=== PATIENT | female | born 1975 | race African-American/Black ===

== ENCOUNTER 2017-10-31 11:55 | Emergency (ER) | payer OTHER ==
[2017-10-31 12:23] VITALS: BP 113/51; PULSE 66; TEMP 98.5; BMI 33.3
[2017-10-31] MEDS ORDERED: IBUPROFEN 600 MG TABLET (FP) PO ONE ×2 (12:28→12:35)
--- NOTE | 2017-10-31 13:02 | PDOC ---
History of Present Illness - General Chief Complaint: Sore Throat Stated Complaint: THROAT PAIN Time Seen by Provider: 10/31/17 12:28 History Source: Patient Exam Limitations: No Limitations - History of Present Illness Initial Comments: 10/31/17 12:59 42-year-old female presents the emergency room with complaints of left-sided throat pain, ear pain, and a bump to her upper neck for the past 3 days. Patient states no difficulty swallowing and denies fever/chills smoking history recent illness or recent travel. Patient denies neck stiffness, dental infection , or tongue pain Timing/Duration: other Severity: mild Associated Symptoms: reports: denies symptoms Past History - Past Medical History Allergies/Adverse Reactions: Allergies Allergy/AdvReac Type Severity Reaction Status Date / Time No Known Allergies Allergy Verified 10/31/17 12:23 Home Medications: Ambulatory Orders NK [No Known Home Medication] 10/31/17 Anemia: Yes Asthma: No Cancer: No Cardiac Disorders: No CVA: No COPD: No CHF: No Dementia: No Diabetes: No GI Disorders: No Disorders: No HTN: No Hypercholesterolemia: No Liver Disease: No Seizures: No Thyroid Disease: No - Surgical History Abdominal Surgery: No Appendectomy: No Cardiac Surgery: No Cholecystectomy: No Lung Surgery: No Neurologic Surgery: No Orthopedic Surgery: No - Suicide/Smoking/Psychosocial Hx Smoking Status: No Smoking History: Never smoked Have you smoked in the past 12 months: No Number of Cigarettes Smoked Daily: 0 Information on smoking cessation initiated: No Hx Alcohol Use: No Drug/Substance Use Hx: No Substance Use Type: None Hx Substance Use Treatment: No Patient Lives Alone: No Lives with/in: spouse/SO Review of Systems - Review of Systems Able to Perform ROS?: No Constitutional: No: Symptoms Reported HEENTM: Yes: Ear Pain, Throat Pain. No: Difficulty Swallowing, Mouth Swelling Respiratory: No: Symptoms reported Cardiac (ROS): No: Symptoms Reported Musculoskeletal: No: Symptoms Reported Integumentary: Yes: Lumps Neurological: No: Symptoms reported *Physical Exam - Vital Signs Last Vital Signs Temp Pulse Resp BP Pulse Ox 98.5 F 66 18 113/51 100 10/31/17 12:00 10/31/17 12:00 10/31/17 12:00 10/31/17 12:00 10/31/17 12:00 - Physical Exam General Appearance: Yes: Nourished, Appropriately Dressed. No: Apparent Distress HEENT: positive: EOMI, LEDA, TMs Normal, Pharyngeal Erythema (left-sided no petechiae no exudate. Impacted tooth #1, no signs of decay) Neck: positive: Normal Thyroid, Supple, Lymphadenopathy (L) (mild upper cervical ). negative: Tender lateral Respiratory/Chest: positive: Lungs Clear, Normal Breath Sounds. negative: Respiratory Distress, Accessory Muscle Use Cardiovascular: positive: Regular Rhythm, Regular Rate. negative: Murmur Integumentary: positive: Normal Color, Warm, Moist Neurologic: positive: Motor Strength 5/5 (ambulatory) ED Treatment Course - Medications Given in the ED: ED Medications Discontinued Medications Generic Name Dose Route Start Last Admin Trade Name Freq PRN Reason Stop Dose Admin Ibuprofen 600 mg 10/31/17 12:28 10/31/17 12:37 Motrin - PO 10/31/17 12:29 600 mg ONCE ONE Administration Medical Decision Making - Medical Decision Making 10/31/17 13:01 Patient with left-sided throat pain and ear pain. Patient exam with mild erythema to the left posterior pharynx and 1 slightly enlarged upper cervical lymph node. Patient ordered for Motrin along with rapid strep. If negative patient recommended to follow up with dentist for impacted tooth which she states was told needed to be removed but lacks insurance presently 10/31/17 13:34 Strep negative. Patient recommended to continue with Motrin every 6-8 hours and follow-up with dentist. *DC/Admit/Observation/Transfer Diagnosis at time of Disposition: Throat discomfort, Impacted tooth - Discharge Dispostion Disposition: HOME Condition at time of disposition: Improved - Referrals Referrals: Primo Aguilar MD [Primary Care Provider] - - Patient Instructions Printed Discharge Instructions: DI for Impacted Tooth Additional Instructions: continue with Motrin 600 mg every 6-8 hours and follow-up with dentist. - Post Discharge Activity
== END 2017-10-31 13:36 | disposition home or self-care (01) ==
LOC: JERFT 11:55 → JER 11:55 → JERFT 13:36
DX: K01.1 Impacted teeth (principal); R59.0 Localized enlarged lymph nodes; R07.0 Pain in throat
CPT/HCPCS: 87070; 87430; 99281-25

== ENCOUNTER 2021-01-14 23:18 | Emergency (ER) | payer OTHER ==
[2021-01-14 23:46] VITALS: BP 122/86; PULSE 78; TEMP 98.3; BMI 33.3
[2021-01-15 09:33] LABS: HIV INTERPRETATION NEGATIVE (NEGATIVE)
== END 2021-01-15 02:20 | disposition home or self-care (01) ==
LOC: JER 23:18
DX: S61.032A Puncture wound without foreign body of left thumb without damage to nail, initial encounter (principal); W46.1XXA Contact with contaminated hypodermic needle, initial encounter
CPT/HCPCS: 36415; 86706; 87389; 87517; 87522; 99283-25

== ENCOUNTER 2021-07-12 08:33 | Emergency (ER) | payer OTHER ==
[2021-07-12 08:40] VITALS: BP 116/71; PULSE 66; TEMP 98.5; BMI 31.9
[2021-07-12] MEDS ORDERED: LIDOCAINE HCL 1%, 10 MG/ML (50 mL VIAL) SQ ONE (09:34)
[2021-07-12] MEDS ORDERED: LIDOCAINE HCL 1%, 10 MG/ML (20ML VIAL) ONE (09:42)
== END 2021-07-12 10:03 | disposition home or self-care (01) ==
LOC: JER 08:33 → JERFT 08:33
DX: N61.1 Abscess of the breast and nipple (principal)
CPT/HCPCS: 99283-25

== ENCOUNTER 2022-04-07 15:27 | Observation (INO) | payer OTHER ==
[2022-04-07 18:03] LABS: BASO % 0.8 % (0-2.0); EOS % 2.9 % (0-4.5); HEMATOCRIT 25.6 % (32.4-45.2); HEMOGLOBIN 7.5 GM/dL (10.7-15.3); LYMPH % 27.6 % (8-40); MCHC 29.1 g/dl (32.0-36.0); MEAN CELL VOLUME 55.5 fl (80-96); MEAN PLT VOLUME 8.5 fl (7.5-11.1); MONO % 6.7 % (3.8-10.2); PLATELET COUNT 342 10^3/uL (134-434); RBC 4.62 M/mm3 (3.60-5.2); RDW 21.3 % (11.6-15.6)
[2022-04-07 18:10] LABS: INR 1.09 (0.83-1.09); PROTHROMBIN TIME (PATIENT) 12.5 SEC (9.7-13.0)
[2022-04-07 18:12] LABS: ACTIVATED PTT 26.1 SECONDS (25.2-36.5)
[2022-04-07 18:14] LABS: MCH 16.2 pg (25.7-33.7)
[2022-04-07 18:20] LABS: CALCIUM 8.6 mg/dL (8.5-10.1)
[2022-04-07 18:21] LABS: ALBUMIN 3.4 g/dl (3.4-5.0); BLOOD UREA NITROGEN 7.1 mg/dL (7-18)
[2022-04-07 18:24] LABS: CREATININE 0.8 mg/dL (0.55-1.3)
[2022-04-07 18:26] LABS: BILIRUBIN,TOTAL 0.2 mg/dL (0.2-1); TOT PROT 7.5 g/dl (6.4-8.2)
[2022-04-07 19:46] LABS: ANISOCYTOSIS 3+; MACROCYTOSIS 1+; PLATELET ESTIMATE NORMAL
[2022-04-07 19:47] LABS: OVALOCYTE 1+
[2022-04-07 21:29] LABS: ERYTHROCYTE SEDIMENTATION RATE 28 mm/hr (0-20)
[2022-04-08 01:00] LABS: HEMATOCRIT 28.7 % (32.4-45.2); HEMOGLOBIN 8.6 GM/dL (10.7-15.3); MCHC 29.8 g/dl (32.0-36.0); MEAN CELL VOLUME 58.5 fl (80-96); MEAN PLT VOLUME 8.8 fl (7.5-11.1); PLATELET COUNT 309 10^3/uL (134-434); RBC 4.91 M/mm3 (3.60-5.2); WHITE BLOOD COUNT 7.6 K/mm3 (4.0-10.0)
[2022-04-08 01:03] LABS: MCH 17.4 pg (25.7-33.7)
[2022-04-08 01:18] VITALS: RESP 18; BMI 32.0
[2022-04-08 10:58] LABS: BASO % 0.7 % (0-2.0); EOS % 2.8 % (0-4.5); HEMOGLOBIN 8.5 GM/dL (10.7-15.3); MCHC 30.3 g/dl (32.0-36.0); MEAN CELL VOLUME 58.3 fl (80-96); MEAN PLT VOLUME 8.8 fl (7.5-11.1); MONO % 6.6 % (3.8-10.2); NEUT % 64.9 % (42.8-82.8); PLATELET COUNT 309 10^3/uL (134-434); RBC 4.81 M/mm3 (3.60-5.2); RDW 22.7 % (11.6-15.6); WHITE BLOOD COUNT 6.6 K/mm3 (4.0-10.0)
[2022-04-08 10:59] LABS: MCH 17.7 pg (25.7-33.7)
[2022-04-08] MEDS ORDERED: diphenhydrAMINE HCL 25 MG CAPSULE (FP) PO SCH (12:00)
[2022-04-08 12:25] LABS: ALBUMIN 3.2 g/dl (3.4-5.0); BLOOD UREA NITROGEN 9.2 mg/dL (7-18); PHOSPHOROUS 3.2 mg/dL (2.5-4.9)
[2022-04-08 12:27] LABS: BILIRUBIN,TOTAL 0.4 mg/dL (0.2-1); CALCIUM 8.4 mg/dL (8.5-10.1)
[2022-04-08 12:28] LABS: CREATININE 0.7 mg/dL (0.55-1.3)
[2022-04-08] MEDS ORDERED: IRON SUCROSE INJECTION 100 MG in SODIUM CHLORIDE 95 ML IVPB ONE (12:30)
[2022-04-08 13:56] VITALS: BP 108/53; PULSE 67; TEMP 97.9
== END 2022-04-08 17:08 | disposition home or self-care (01) ==
LOC: JER 15:27 → JERBED 19:05 → INTOOBSV 19:05 → J6S 23:22
PROVIDERS: ADMIT Internal Medicine; ATTEND Internal Medicine
PROC: 3E033GC Introduction of Other Therapeutic Substance into Peripheral Vein, Percutaneous Approach (ICD-10-PCS; principal; 2022-04-07)
PROC: 30233N1 Transfusion of Nonautologous Red Blood Cells into Peripheral Vein, Percutaneous Approach (ICD-10-PCS; 2022-04-07)
DX: D50.9 Iron deficiency anemia, unspecified (principal); N60.09 Solitary cyst of unspecified breast; K64.8 Other hemorrhoids; Z29.8 Encounter for other specified prophylactic measures; R53.83 Other fatigue
CPT/HCPCS: 36415; 36430; 71045-TC-FY; 80053; 82272; 82607; 82728; 82746; 83540; 83550; 83735; 84100; 84443; 84484; 85025; 85027; 85610; 85651; 85730; 86140; 86850; 86900; 86901; 86922; 93005; 93010; 96365; 99285-25; C9803-CS; G0378; J1756; P9058; U0003; U0005

== ENCOUNTER 2022-12-28 04:38 | Day surgery (SDC) | payer OTHER ==
[2022-12-26 11:31] VITALS: BMI 31.8
[2022-12-28 11:28] VITALS: RESP 23
[2022-12-28 11:30] VITALS: BP 109/56; PULSE 54; TEMP 98
== END 2022-12-28 11:33 | disposition home or self-care (01) ==
LOC: JASU-ENDO 04:38
PROVIDERS: ATTEND Internal Medicine Gastroenterology
PROC: 0DB98ZX Excision of Duodenum, Via Natural or Artificial Opening Endoscopic, Diagnostic (ICD-10-PCS; 2022-12-28)
PROC: 0DB68ZX Excision of Stomach, Via Natural or Artificial Opening Endoscopic, Diagnostic (ICD-10-PCS; 2022-12-28)
PROC: 0DJD8ZZ Inspection of Lower Intestinal Tract, Via Natural or Artificial Opening Endoscopic (ICD-10-PCS; principal; 2022-12-28 10:00)
DX: Z12.11 Encounter for screening for malignant neoplasm of colon (principal); K21.00 Gastro-esophageal reflux disease with esophagitis, without bleeding; K29.50 Unspecified chronic gastritis without bleeding; B96.81 Helicobacter pylori [H. pylori] as the cause of diseases classified elsewhere; K64.8 Other hemorrhoids; K92.1 Melena; D50.9 Iron deficiency anemia, unspecified
CPT/HCPCS: 81025; 88305-TC; 88342-TC

== ENCOUNTER 2023-06-03 04:35 | Day surgery (SDC) | payer OTHER ==
[2023-05-30 15:16] VITALS: BMI 31.6
[2023-06-03 09:20] VITALS: RESP 18
[2023-06-03] MEDS ORDERED: LIDOCAINE HCL/PF 1% SDV 5ML VIAL ONE (10:04)
[2023-06-03] MEDS ORDERED: DEXAMETHASONE SOD PHOSPHATE 10 MG/1 ML VIAL ONE (10:04)
[2023-06-03] MEDS ORDERED: MIDAZOLAM HCL 2 MG/2 ML SINGLE DOSE VIAL ONE (10:48)
[2023-06-03] MEDS ORDERED: IOHEXOL 180 MG/1 ML ML IJ ONE (10:57)
[2023-06-03] MEDS ORDERED: LIDOCAINE 1% P/F 10 MG/ML VIAL INF ONE (10:57)
[2023-06-03] MEDS ORDERED: BUPIVACAINE HCL/PF 0.25% (2.5MG/ML) 10 ML VIAL IJ ONE (10:57)
[2023-06-03] MEDS ORDERED: DEXAMETHASONE SOD PHOSPHATE 10 MG/1 ML VIAL IVPUSH ONE (10:57)
[2023-06-03 11:20] VITALS: TEMP 97.7
[2023-06-03 13:29] VITALS: BP 119/60; PULSE 61
== END 2023-06-03 13:26 | disposition home or self-care (01) ==
LOC: JASU-SURG 04:35
PROVIDERS: ATTEND Physical Medicine & Rehabilitation
PROC: 3E0R3BZ Introduction of Anesthetic Agent into Spinal Canal, Percutaneous Approach (ICD-10-PCS; 2023-06-03)
PROC: 3E0R33Z Introduction of Anti-inflammatory into Spinal Canal, Percutaneous Approach (ICD-10-PCS; principal; 2023-06-03 10:30)
DX: M54.16 Radiculopathy, lumbar region (principal); M54.50 Low back pain, unspecified
CPT/HCPCS: 76000-TC-FY; 81025; J1100